=== PATIENT | female | born 1995 | race Caucasian/White ===

== ENCOUNTER → 2020-09-02 11:26 | Outpatient (CLI) | payer OTHER, SELFPAY ==
--- NOTE | ~2020-09-02 | US_ITS ---
US breast RT complete INDICATION: Palpable right breast lump felt by physician. Maternal history of breast cancer. TECHNIQUE: Dedicated right breast ultrasound COMPARISON: Ultrasound dated 08/28/2019 FINDINGS: The right breast is composed of normal heterogeneous echotexture without focal solid or cys tic mass. IMPRESSION: 1: Normal right breast ultrasound. BI-RADS CATEGORY 1 - NEGATIVE Reviewed, dictated and finalized at location A.
== END ==
PROVIDERS: Visit Provider Nurse Practitioner
DX: N63.10 Unspecified lump in the right breast, unspecified quadrant (principal); Z80.3 Family history of malignant neoplasm of breast
CPT/HCPCS: 76641